=== PATIENT | male | born 1955 | race Caucasian/White ===

== ENCOUNTER 2016-12-04 04:58 | Emergency (ER) | payer MEDICARE, OTHER ==
[~2016-12-04] VITALS: Ht 175.3 cm; Wt 71.0 kg
[~2016-12-04 04:58] MED LIST: LEVO750T25 PO; MORP-72 PO; [UNRECOGNIZED DRUG - CODE] BC; [UNRECOGNIZED DRUG - CODE] PO
[2016-12-04 05:02] VITALS: Ht 175.3 cm; Wt 71.0 kg
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
[2016-12-04] MEDS ORDERED: SSD1C20 TOP (05:24)
[2016-12-04] MEDS ORDERED: IBUP-1542 PO (05:24)
[2016-12-04] MEDS ORDERED: SULF1TAB31 PO (05:24)
[2016-12-04] MEDS ORDERED: CEPH-443 PO (05:24)
[2016-12-04] MEDS ORDERED: HYDR-906 PO (05:24)
[2016-12-04] MEDS ORDERED: SILVER SULFADIAZINE 1% 25 GM CR TOP ONE (05:30)
[2016-12-04] MEDS ORDERED: HYDROCODONE/APAP (10/325) TAB PO ONE (05:30)
[2016-12-04] MEDS ORDERED: DIPHTH/TET/ACEL PERTUSS (ADULT) 0.5 ML VIAL IM* ONE (05:30)
[2016-12-04 05:40] VITALS: BP 136/82; PULSE 99; RESP 19; TEMP 97.9
== END 2016-12-04 05:40 | disposition home or self-care (01) ==
LOC: FTE 04:58
DX: T22.212A Burn of second degree of left forearm, initial encounter (principal); X12.XXXA Contact with other hot fluids, initial encounter; Y92.9 Unspecified place or not applicable; Z23 Encounter for immunization; Z87.891 Personal history of nicotine dependence
CPT/HCPCS: 90471; 90715

== ENCOUNTER 2017-10-12 06:34 | Emergency (ER) | END 2017-10-12 07:56 | disposition home or self-care (01) ==

== ENCOUNTER 2017-10-30 04:43 | Emergency (ER) | END 2017-10-30 06:53 | disposition home or self-care (01) ==

== ENCOUNTER 2017-12-08 04:34 | Emergency (ER) | END 2017-12-08 05:44 | disposition home or self-care (01) ==

== ENCOUNTER → 2018-11-11 | Emergency (ER) | payer MEDICARE, OTHER ==
[~2018-11-11] VITALS: Ht 175.3 cm; Wt 75.0 kg
[~2018-11-11] MED LIST changes: +ALBU18HF INHALATION; +AZIT250T PO; +CEPH-443 PO; +HYDR-4011 PO; +HYDROCODONE/APAP (10/325) TAB PO ONE; +IBUP-1542 PO; +KETOROLAC 30 MG INJ IM STA; +SSD1C20 TOP; +SULF1TAB31 PO; +TRAM50TA2 PO
[2018-11-11 09:29] VITALS: Ht 175.3 cm; Wt 75.0 kg
[2018-11-11] MEDS: NAPROXEN 500 MG TAB PO ONE ×2 (12:06→12:09)
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
[2018-11-11 16:25] VITALS: BP 141/77; PULSE 90; RESP 20
== END | disposition home or self-care (01) ==
LOC: FTE 09:22
DX: S92.001A Unspecified fracture of right calcaneus, initial encounter for closed fracture (principal); J44.9 Chronic obstructive pulmonary disease, unspecified; F17.210 Nicotine dependence, cigarettes, uncomplicated; W17.89XA Other fall from one level to another, initial encounter; Y92.9 Unspecified place or not applicable
CPT/HCPCS: 72072; 72100; 73510; 73562; 73610; 73630; 96372; 99284; J1885

== ENCOUNTER 2019-01-08 11:59 | Emergency (ER) | payer MEDICARE, OTHER ==
[~2019-01-08] VITALS: Ht 175.3 cm; Wt 68.6 kg
[~2019-01-08 11:59] MED LIST changes: -HYDROCODONE/APAP (10/325) TAB PO ONE; -KETOROLAC 30 MG INJ IM STA
[2019-01-08 12:04] VITALS: Ht 175.3 cm; Wt 68.6 kg
[2019-01-08] MEDS ORDERED: DIPHTH/TET/ACEL PERTUSS (ADULT) 0.5 ML VIAL IM* ONE (12:30)
[2019-01-08] MEDS ORDERED: IBUPROFEN 800 MG TAB PO ONE (13:00)
[2019-01-08] MEDS ORDERED: IBUP800T48 PO (13:40)
[2019-01-08] MEDS ORDERED: HYDR-4011 PO (13:42)
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
[2019-01-08 13:57] VITALS: BP 133/71; PULSE 91; RESP 16
== END 2019-01-08 14:00 | disposition home or self-care (01) ==
LOC: FTE 11:59
DX: M79.671 Pain in right foot (principal); M54.5 Low back pain; Z23 Encounter for immunization
CPT/HCPCS: 72100; 73630; 90471; 90715